=== PATIENT | female | born 1985 | race Caucasian/White ===

== ENCOUNTER 2017-06-01 17:00 | Inpatient (IN) | payer OTHER ==
[~2017-06-01] VITALS: Ht 160 cm; Wt 59.9 kg
--- NOTE | ~2017-06-01 | PN ---
Unit #: [id number] #: [id number] Patient: FAUSTINA PRICE [id number] [facility] [address] [place] [address] [id number] I MR#: [id number] NAME: FAUSTINA PRICE ROOM: 73 Age: 32 Sex: F Admission Date: 06/02/2017 : 1985 Attending Physician: Louie Sapp M.D. Admitting Physician: Louie Sapp M.D. Primary Care Physician: Generic Doctor Not In System [facility] PROGRESS NOTES DATE 06/03/2017 DISCUSSION Faustina is showing improvement today. She has decreased detox symptoms today, slept better, has a better mood with a brighter affect. She is alert and fully oriented today. Her memory and concentration are fair and her thought processes are logical and no active psychosis or suicidal ideation. ASSESSMENT Bipolar depressed, alcohol abuse. PLAN We will continue the current medications and anticipate discharge tomorrow. Dictated by... Radha Romo/carlee TD: 06/04/2017 11:17 JOB #: [id number] [facility] PROGRESS NOTES Page 1 of 1 X Louie Sapp MD PROGRESS NOTE
--- NOTE | ~2017-06-01 | HP ---
Unit #: [id number] #: [id number] Patient: FAUSTINA PRICE [id number] [place] [address] [id number] I MR#: [id number] NAME: FAUSTINA PRICE ROOM: 73 Age: 32 Sex: F Admission Date: 06/02/2017 : 1985 Attending Physician: Louie Sapp M.D. Admitting Physician: Louie Sapp M.D. Primary Care Physician: Generic Doctor Not In System HISTORY AND PHYSICAL HISTORY OF PRESENT ILLNESS Faustina is a 32-year-old female admitted on 06/02/2017 to [facility] for detox from alcohol. PAST MEDICAL HISTORY 1. Asthma. 2. Epilepsy. 3. Right wrist sprain that is currently splinted. PAST SURGICAL HISTORY 1. Bilateral tubal ligation. 2. Left arm fracture with lionel placement. ALLERGIES Phenergan. SOCIAL HISTORY Smokes 1 pack of cigarettes daily. Drinks a fifth of alcohol daily and daily use of meth. She is currently from her and living in [facility]. FAMILY HISTORY Noncontributory. REVIEW OF SYSTEMS CONSTITUTIONAL: No fever or chills. HEENT: Denies any sore throat, ear pain or runny nose. CARDIOVASCULAR: Denies chest pain, irregular heart rhythm or palpitations. CHEST: Denies shortness of breath or cough. No hemoptysis. GASTROINTESTINAL: Denies nausea, vomiting, diarrhea or chronic constipation. ENDOCRINE: Denies history of increased thirst or urination. No recent significant weight loss or gain. GENITOURINARY: Denies dysuria, frequency, or hematuria. SKIN: Denies any rashes. HEMATOLOGIC: Denies history of increased bleeding or bruising. MUSCULOSKELETAL: Denies any hot, swollen joints. No generalized muscle pain. NEUROLOGIC: Denies problems with vision or speech. No frequent, severe headaches. No numbness, tingling or weakness in any extremities. Denies loss of bladder or bowel control. CURRENT MEDICATIONS Unit #: [id number] #: [id number] Patient: FAUSTINA PRICE 1. Celexa. 2. Depakote. PHYSICAL EXAMINATION GENERAL: Alert, oriented, in no acute distress. VITAL SIGNS: Blood pressure 106/76, heart rate 65, respirations 16, temperature 98.2. HEIGHT: 5 feet 3. WEIGHT: 132 pounds. SKIN: Warm and dry without rash or lesion. HEENT: Normocephalic. TMs not viewed. Oral and nasal passages clear. Conjunctivae clear. PERRLA. EOMs intact. NECK: Supple without lymphadenopathy or thyromegaly. HEART: Regular rate and rhythm without murmur. LUNGS: Clear. ABDOMEN: Soft, nontender, without masses or hepatosplenomegaly. : Not done. EXTREMITIES: No evidence of cyanosis, clubbing or edema. Moves all without focal deficit. Right wrist splinted. NEUROLOGICAL: Grossly within normal limits. Cranial Nerves: II: Visual harris are intact. III, IV AND : Extraocular movements are intact. Pupils are equal, round and reactive to light. V: Facial sensation is grossly normal. VII: Facial movements and expression are normal. VIII: Auditory acuity grossly intact. IX, X: Uvula is midline. Phonation is normal. XI: Patient shrugs shoulders and turns head normally. XII: Tongue protrudes in the midline. Sensory and Motor Function: Sensory and motor sensation is grossly normal. Motor: moves all extremities well. Coordination: Gait is normal. Deep Tendon Reflexes: Intact. IMPRESSION 1. Psychiatric admission. 2. Right wrist sprain with splint. 3. Asthma. 4. Epilepsy. RECOMMENDATIONS PSYCHIATRIC: Per psychiatrist. MEDICAL: No contraindication to participate in facility's activities. MEDICAL PROGNOSIS Good. MEDICAL CONDITION Stable. Dictated by... Mahad Newsome/boom TD: 06/02/2017 15:25 JOB #: [id number] Unit #: [id number] #: [id number] Patient: FAUSTINA PRICE HISTORY AND PHYSICAL Page 1 of 1 X AMADOU YEE APRN HISTORY AND PHYSICAL
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
--- NOTE | ~2017-06-01 | DS ---
Unit #: [id number] #: [id number] Patient: STEVE PRICE [id number] [facility] [address] [place] [address] [id number] I MR#: [id number] NAME: STEVE PRICE ROOM: 73 Age: 32 Sex: F Admission Date: 06/02/2017 : 1985 Discharge Date: 06/04/2017 Attending Physician: Louie Sapp M.D. Primary Care Physician: Generic Doctor Not In System DISCHARGE SUMMARY REASON FOR ADMISSION Ms. Price is a 32-year-old woman who came in reporting excessive use of alcohol and multiple psychosocial stressors. She had also been using methamphetamines on an erratic basis. She had vague suicidal ideation and was unable to contract for safety. She was admitted for stabilization. DIAGNOSTIC STUDIES LABORATORY DATA: Please see hospital chart. HOSPITAL COURSE Patient was admitted and placed on suicide precautions as well as the alcohol detox protocol. Citalopram and Depakote were restarted without incident, and she tolerated these well. She enrolled in psychotherapy groups and activities, and on the date of discharge he had a bright affect, good mood, and no further suicidal ideation, intent, or plan. DISCHARGE DIAGNOSES AXIS I: Bipolar disorder depressed. Alcohol dependence. Amphetamine abuse. AXIS II: No diagnosis. AXIS III: History withdrawal seizures. DISCHARGE INSTRUCTIONS Follow up with community mental health and primary care physician. DISCHARGE MEDICATIONS 1. Celexa 40 mg a day for depression. 2. Depakote 250 mg daily for mood stability. CONDITION ON DISCHARGE Improved. PROGNOSIS Fair to good. DIET AND ACTIVITY Per primary care doctor. Dictated by... Louie Sapp M.D. Unit #: [id number] #: [id number] Patient: STEVE PRICE MR/bzg TD: 06/07/2017 09:55 JOB #: [id number] DISCHARGE SUMMARY Page 1 of 1 X Louie Sapp MD X DISCHARGE SUMMARY
[2017-06-03 15:14] LABS: URINE APPEARANCE CLEAR; URINE BILIRUBIN NEG (NEG); URINE BLOOD TRACE (NEG); URINE COLOR YELLOW; URINE GLUCOSE NEG (NEG); URINE KETONE NEG (NEG); URINE LEUKOCYTE ESTERASE 1+ (NEG); URINE NITRATE NEG (NEG); URINE PROTEIN NEG (NEG); URINE SPECIFIC GRAVITY 1.008 (1.003-1.035); URINE UROBILINOGEN 0.2 MG/DL (NEG)
[2017-06-03 15:18] LABS: URBCS1 AUWI 0-2 /[HPF] (0-2); URINE BACTERIA AUWI NEG (NEGATIVE); URINE SQUAMOUS EPITHELIAL CELL OCC /[HPF]
[2017-06-03 15:35] LABS: AMPHETAMINE POS (NEG); BARBITURATES NEG (NEG); BENZODIAZEPINES NEG (NEG); COCAINE NEG (NEG); MARIJUANA NEG (NEG); OPIATES NEG (NEG); TRICYCLIC ANTIDEPRESSANTS NEG (NEG); U METHADONE NEG (NEG)
== END 2017-06-04 11:35 | DRG 885 ==
LOC: P1E 06-02 04:39
PROVIDERS: Psychiatry & Neurology Psychiatry
PROC: HZ2ZZZZ Detoxification Services for Substance Abuse Treatment (ICD-10-PCS; principal; 2017-06-02)
DX: F31.4 Bipolar disorder, current episode depressed, severe, without psychotic features (principal); R45.851 Suicidal ideations; F15.10 Other stimulant abuse, uncomplicated; F10.20 Alcohol dependence, uncomplicated
CPT/HCPCS: 80307; 81003; 86592